=== PATIENT | female | born 1960 | race Caucasian/White ===

== ENCOUNTER 2018-12-01 15:47 | Emergency (ER) | payer OTHER, MEDICAID ==
[~2018-12-01] VITALS: Ht 157.5 cm; Wt 65.3 kg
[2018-12-01] MEDS ORDERED: traMADol HCL 50 MG TAB PO ONE (20:00)
[2018-12-01 20:50] VITALS: BP 149/80
[2018-12-01] MEDS ORDERED: traMADol HCL 50 MG TAB ONE (20:58)
== END 2018-12-01 21:13 | disposition home or self-care (01) ==
LOC: EDBD 15:47 → ER 15:47
DX: S80.12XA Contusion of left lower leg, initial encounter (principal); S13.4XXA Sprain of ligaments of cervical spine, initial encounter; S63.502A Unspecified sprain of left wrist, initial encounter; E78.00 Pure hypercholesterolemia, unspecified; V49.9XXA Car occupant (driver) (passenger) injured in unspecified traffic accident, initial encounter; Y93.89 Activity, other specified; Y92.89 Other specified places as the place of occurrence of the external cause; Y99.8 Other external cause status
CPT/HCPCS: 70450; 72125; 73110; 73590